=== PATIENT | male | born 1940 | race Caucasian/White ===

== ENCOUNTER → 2016-03-22 | Outpatient (CLI) | payer BC ==
[~2016-03-22] MED LIST: ASPI81CH2 PO; COEN1CAP28 PO; HYG/25 PO; POTA1CAP2 PO; PRAV40TA PO
--- NOTE | 2016-03-22 11:02 | DIAGNOSTIC IMAGING REPORT ---
ULTRASOUND VENOUS DOPPLER ULTRASOUND OF THE LEFT LOWER EXTREMITY CLINICAL HISTORY: Leg swelling. History of right upper extremity DVT. COMPARISON STUDY: No previous studies for comparison. FINDINGS: Real-time and color flow Doppler imaging were performed. Flow was seen within the femoral, popliteal and calf veins with no intraluminal thrombus demonstrated. The saphenous vein is patent. IMPRESSION: No evidence of left lower extremity DVT. Electronically signed by: Glenn Ambrocio M.D. 03/22/2016 11:00 AM Dictated Date/Time: 03/22/2016 10:59 AM
== END | disposition home or self-care (01) ==
LOC: C.ULTR 09:57
PROVIDERS: ATTEND Internal Medicine
DX: I82.409 Acute embolism and thrombosis of unspecified deep veins of unspecified lower extremity (principal); M79.605 Pain in left leg

== ENCOUNTER → 2016-03-25 | Outpatient (CLI) | payer BC ==
[2016-03-25 12:25] LABS: BASO % 0.5 %; BASO ABS # 0.02 K/uL (0-0.2); COMPLETE YES; EOS % 1.4 %; HEMATOCRIT 38.1 % (42-52); LYMPH % 22.2 %; LYMPH ABS # 0.98 K/uL (1.2-3.4); MEAN CELL VOLUME 80.5 fL (80-100); MEAN CORPUSCULAR HEMOGLOBIN 25.4 pg (25-34); MEAN CORPUSCULAR HGB CONC 31.5 g/dl (32-36); MEAN PLATELET VOLUME 9.5 fL (7.4-10.4); MONO % 12.9 %; PLATELET COUNT 252 K/uL (130-400); RED BLOOD COUNT 4.73 M/uL (4.7-6.1); WHITE BLOOD COUNT 4.41 K/uL (4.8-10.8)
[2016-03-25 12:37] LABS: ALT/SGPT 22 U/L (12-78); AST/SGOT 18 U/L (15-37); BLOOD UREA NITROGEN 21 mg/dl (7-18); BUN/CREATININE RATIO 17.6 (10-20); CARBON DIOXIDE 30 mmol/L (21-32); CHLORIDE 101 mmol/L (98-107); GLUCOSE 97 mg/dl (70-99); POTASSIUM 3.8 mmol/L (3.5-5.1); SODIUM 139 mmol/L (136-145)
[2016-03-25 12:40] LABS: ALB/GLOB RATIO 1.3 (0.9-2); ALKALINE PHOSPHATASE 52 U/L (45-117); FERRITIN 5.1 ng/ml (8.0-388.0); TOTAL IRON BINDING CAPACITY 410 mcg/dl (250-450)
--- NOTE | 2016-03-29 13:44 | CODING QUERY MEDICAL NECESSITY ---
SUPPORTING DIAGNOSIS NEEDED A supporting diagnosis is required for the test/procedure performed on this patient in order for us to be reimbursed by the patient's insurance. Please provide a supporting diagnosis for the following test/procedure listed below next to the test name along with your signature. *If there is no additional diagnosis for this patient that would support the following test/procedure please document that below next to the test/procedure. Test(s)/Procedure(s) that require a supporting diagnosis: * VIT B-12 LEVEL DIAGNOSIS: * FOLATE LEVEL DIAGNOSIS: * DOS: 03/25/16 Provider Signature: Date: Thank you Natalia Abernathy Health Information Management Once completed, please kindly fax back to [phone] For questions please call [phone]
== END | disposition home or self-care (01) ==
LOC: C.LABBFT 10:47
PROVIDERS: ATTEND Nurse Practitioner
DX: C67.8 Malignant neoplasm of overlapping sites of bladder (principal); D64.9 Anemia, unspecified

== ENCOUNTER → 2016-06-27 | Outpatient (CLI) | payer BC ==
[2016-06-27 17:53] LABS: BASO % 0.4 %; BASO ABS # 0.02 K/uL (0-0.2); COMPLETE YES; EOS % 1.3 %; IG% 0.2 %; LYMPH % 20.7 %; LYMPH ABS # 0.96 K/uL (1.2-3.4); MEAN CELL VOLUME 89.4 fL (80-100); MEAN CORPUSCULAR HEMOGLOBIN 30.4 pg (25-34); MONO % 9.3 %; NEUT % 68.1 %; PLATELET COUNT 188 K/uL (130-400); WHITE BLOOD COUNT 4.64 K/uL (4.8-10.8)
[2016-06-27 18:12] LABS: BLOOD UREA NITROGEN 22 mg/dl (7-18); BUN/CREATININE RATIO 16.6 (10-20); CALCIUM 9.4 mg/dl (8.5-10.1); CARBON DIOXIDE 33 mmol/L (21-32); CHLORIDE 102 mmol/L (98-107); GLUCOSE 128 mg/dl (70-99); POTASSIUM 3.5 mmol/L (3.5-5.1); SODIUM 140 mmol/L (136-145); TOTAL IRON BINDING CAPACITY 363 mcg/dl (250-450)
[2016-06-27 18:19] LABS: ALB/GLOB RATIO 1.3 (0.9-2); ALKALINE PHOSPHATASE 65 U/L (45-117); ALT/SGPT 25 U/L (12-78); AST/SGOT 17 U/L (15-37); FERRITIN 20.6 ng/ml (8.0-388.0)
== END | disposition home or self-care (01) ==
LOC: C.LABBFT 13:26
PROVIDERS: ATTEND Nurse Practitioner
DX: C67.8 Malignant neoplasm of overlapping sites of bladder (principal)

== ENCOUNTER → 2016-09-24 | Outpatient (CLI) | payer BC ==
[2016-09-24 12:10] LABS: BASO % 0.4 %; BASO ABS # 0.02 K/uL (0-0.2); COMPLETE YES; EOS % 1.1 %; HEMATOCRIT 41.6 % (42-52); IG% 0.4 %; LYMPH % 22.8 %; MEAN CELL VOLUME 91.6 fL (80-100); MEAN CORPUSCULAR HEMOGLOBIN 32.2 pg (25-34); MEAN CORPUSCULAR HGB CONC 35.1 g/dl (32-36); MEAN PLATELET VOLUME 9.2 fL (7.4-10.4); MONO % 13.5 %; NEUT % 61.8 %; PLATELET COUNT 215 K/uL (130-400); RED BLOOD COUNT 4.54 M/uL (4.7-6.1); WHITE BLOOD COUNT 5.26 K/uL (4.8-10.8)
[2016-09-24 12:23] LABS: ALT/SGPT 24 U/L (12-78); AST/SGOT 17 U/L (15-37); BLOOD UREA NITROGEN 17 mg/dl (7-18); BUN/CREATININE RATIO 15.5 (10-20); CALCIUM 9.1 mg/dl (8.5-10.1); CARBON DIOXIDE 31 mmol/L (21-32); CHLORIDE 97 mmol/L (98-107); GLUCOSE 82 mg/dl (70-99); POTASSIUM 3.5 mmol/L (3.5-5.1); SODIUM 135 mmol/L (136-145)
[2016-09-24 12:26] LABS: ALB/GLOB RATIO 1.2 (0.9-2); ALKALINE PHOSPHATASE 70 U/L (45-117); FERRITIN 12.8 ng/ml (8.0-388.0); TOTAL IRON BINDING CAPACITY 369 mcg/dl (250-450)
--- NOTE | 2016-10-08 08:33 | CODING QUERY MEDICAL NECESSITY ---
CQSUPPORTING DIAGNOSIS NEEDED A supporting diagnosis is required for the test/procedure performed on this patient in order for us to be reimbursed by the patient's insurance. Please provide a supporting diagnosis for the following test/procedure listed below next to the test name along with your signature. *If there is no additional diagnosis for this patient that would support the following test/procedure please document that below next to the test/procedure. Test(s)/Procedure(s) that require a supporting diagnosis: DOS 09/24/16 PROSTATE SPECIFIC (PSA TEST) Provider Signature: Date: Thank you Juliet Hogue Health Information Management Once completed, please kindly fax back to [phone] For questions please call [phone]
== END | disposition home or self-care (01) ==
LOC: C.LABBFT 10:51
PROVIDERS: ATTEND Nurse Practitioner Family
DX: C67.8 Malignant neoplasm of overlapping sites of bladder (principal); C61 Malignant neoplasm of prostate

== ENCOUNTER → 2017-07-11 | Outpatient (CLI) | payer BC ==
[2017-07-11 16:40] LABS: BASO % 0.4 %; BASO ABS # 0.02 K/uL (0-0.2); EOS % 2.8 %; EOS ABS # 0.13 K/uL (0-0.5); HEMATOCRIT 44.3 % (42-52); HEMOGLOBIN 15.1 g/dL (14.0-18.0); IG# 0.01 K/uL (0.00-0.02); LYMPH % 20.2 %; LYMPH ABS # 0.94 K/uL (1.2-3.4); MEAN CELL VOLUME 92.9 fL (80-100); MEAN CORPUSCULAR HEMOGLOBIN 31.7 pg (25-34); MEAN CORPUSCULAR HGB CONC 34.1 g/dl (32-36); MEAN PLATELET VOLUME 10.3 fL (7.4-10.4); MONO % 13.9 %; MONO ABS # 0.65 K/uL (0.11-0.59); NEUT % 62.5 %; NEUT ABS # 2.91 K/uL (1.4-6.5); PLATELET COUNT 231 K/uL (130-400); RED CELL DISTRIBUTION WIDTH CV 13.4 % (11.5-14.5); RED CELL DISTRIBUTION WIDTH SD 45.5 fL (36.4-46.3); WHITE BLOOD COUNT 4.66 K/uL (4.8-10.8)
[2017-07-11 16:50] LABS: ALBUMIN 4.2 gm/dl (3.4-5.0); ALT/SGPT 24 U/L (12-78); AST/SGOT 21 U/L (15-37); BLOOD UREA NITROGEN 14 mg/dl (7-18); CALCIUM 9.1 mg/dl (8.5-10.1); CARBON DIOXIDE 31 mmol/L (21-32); CREATININE 1.16 mg/dl (0.60-1.40); GLUCOSE 86 mg/dl (70-99); POTASSIUM 3.6 mmol/L (3.5-5.1); SODIUM 135 mmol/L (136-145)
[2017-07-11 16:53] LABS: ALKALINE PHOSPHATASE 72 U/L (45-117); TOTAL PROTEIN 7.3 gm/dl (6.4-8.2)
== END | disposition home or self-care (01) ==
LOC: C.LABBFT 11:28
PROVIDERS: ATTEND Nurse Practitioner Family
DX: C67.8 Malignant neoplasm of overlapping sites of bladder (principal)

== ENCOUNTER 2023-09-06 10:26 | Observation (INO) ==
--- OUTSIDE RECORDS SUMMARY | 2023-09-06 10:40 | External Medical Summary | Continuity of Care Document ---
Author Name Unknown Organization [facility] [address] [facility] [address] [id number] Care Team Providers Care Theatre Program Director Name Role Phone Marta Mcnair Primary Care Physician [phone] [facility]counter [facility] [id number] Date(s): 07/15/23 - 07/15/23 [facility] [address] [facility] [address] [phone] Encounter Diagnosis Basal cell carcinoma of left cheek(Discharge Diagnosis) - 07/15/23 Discharge Disposition: Home or Self Care Attending Physician: MD Parada Cassandra Referring Physician: TAMI Echeverria, Cristela Hansen Allergies, Adverse Reactions, Alerts No Known Allergies Medications amLODIPine 2.5 mg oral tablet take 1 tablet by mouth once daily Start Date: 12/16/19 Status: Ordered chlorthalidone 25 mg oral tablet Start: 04/06/15 14:43:00, 1 tab, PO, Daily Start Date: 04/06/15 Status: Ordered CoQ10 Start: 04/06/15 14:44:00, 200 mg =, PO, Daily Start Date: 04/06/15 Status: Ordered ibuprofen 600 mg oral tablet Start: 05/22/15 15:59:00, 1 tab, PO, q8h, PRN: as needed for pain Start Date: 05/22/15 Status: Ordered potassium chloride Start: 04/06/15 14:43:00 EST, 20 mEq =, PO, tid Start Date: 04/06/15 Status: Ordered pravastatin 40 mg oral tablet Start: 04/06/15 14:44:00, 1 tab, PO, qhs Start Date: 04/06/15 Status: Ordered Tylenol 500 mg oral tablet Start: 08/03/19 10:37:00 EDT, 2 tab, PO, q8h, PRN: as needed for pain Start Date: 08/03/19 Status: Ordered Mental Status 07/15/23 Barriers to Learning one year Hearing de ficit, Vision impairment, Other: glassses, hearing aid Mandatory Health Literacy Documentation Yes Health Literacy Communication Barriers N ever Primary Language Turkish Problem List Condition Confirmation Course Effective Dates Status Health St atus Informant Basal cell carcinoma of left cheek Confirmed Active Changing skin lesion Confirmed Active History of basal cell carcinoma of skin Confirmed Active High cholesterol Confirmed Active HTN (hypertension) Confirmed Active Bladder cancer Confirmed Active Preop examination Confirmed Active Diagnosis Diagnosis Type Effective Dates Health Status Cl inical Service Informant Basal cell carcinoma of left cheek Discharge Diagnosis 07/15/23 Procedures Procedure Date Related Diagnosis Body Site Status Electrodesiccation with curettage 07/15/23 Completed Mohs micrographic surgery 07/15/23 Completed Shave biopsy and cauterization of skin 04/09/23 Completed Shave biopsy and cauterization of skin 04/09/23 Completed Bowel obstruction 07/2019 [facility] Repair of ventral hernia 2017 Completed Bladder 05/17/15 Completed Radical cystectomy 1 05/17/15 Comp leted Cystoscopy x2 2014 Completed Prostatectomy 2011 Completed Colonoscopy x3 2009 Completed Tonsillectomy 194 Completed Bowel obstruction 1943 Complet ed 1open radical cystectomy, ileal conduit, repair of abd wall hernia, primary repair of rectal injury Social History Social History Type Response Smoking Status Never smoked cigaret sarkis Sex Male Dermatology Outpt Proc * NAYE Huerta Rhonda: PERFORM Event Display: Dermatology Outpt Proc Authored Date: [id number] DERMATOLOGY OUTPATIENT PROCEDURE NOTE Name: VICKY DANIELLE Patient Number: [id number] : 1940 Date of Service: 07/15/2023 _ Electronic Signature on File Electronically Reviewed/Signed by: Ingrid Huerta Author Signature Dt/Tm:07/15/2023 04:25 PM Electronically Reviewed/Signed by: MD Solange Garcia Signature Dt/Tm: 07/15/2023 04:38 PM Department of Dermatology RS Patient Care team information Care Team Personnel Name: MD Mcnair Cynthia D Position: Referring Member Role: Primary Care Provider Address: Address: [address] [place] [id number] Name: ELGIN Echeverria Tara Position: Nurse Pract - Family Med Member Role: Lifetime Relationship Address: Address: [address] [place] [address], [place] [address] [place] Name: Lukas Álvarez Kyle Position: Pharmacist Member Role: Pharmacy - Lifetime Address: Address: [address] [place] [address] [place] [id number] Care Team Related Persons Name: JOSE F DE LEON Address: home [address] [place] [phone] Name: ZO DANIELLE Address: home [address] [place] [phone]
--- NOTE | 2023-09-06 11:34 | Emergency Department Note ---
History of Present Illness General Chief complaint: Head Pain Time Seen by Provider: 09/06/23 11:32 History of Present Illness NAME: VICKY DANIELLE AGE: 83 SEX: M : 1940 ARRIVES VIA: Walk-In INFORMANT: Patient ED PROVIDER(S): ELGIN Escobedo, Marino Browne MD The patient is an 83-year-old male who presents to the emergency department for evaluation of an episode of acute onset vision loss. He reports last Friday he was at a car show in [place] when he noticed a curtain of vision loss starting from the bottom of his left eye. It covered 3/4 of his vision and was constant for approximately 3 minutes. He reports the vision returned and he had no other symptoms. He denies any neurological deficits, and reports a slight frontal and maxillary headache. He denies recent illness, he is showing no sign of neurological deficits. Denies any history of previous stroke or TIA. Home Medications Medication Instructions Recorded Confirmed Type chlorthalidone 25 mg tablet 25 mg PO QAM 11/18/18 09/06/23 History coenzyme Q10 10 mg capsule (Co 10 mg PO QAM 11/18/18 09/06/23 History Q-10) glucosam 500 mg-chondroit 66.7 1 tab PO QAM 11/18/18 09/06/23 History mg-msm 500 mg-boron 2 mg-hyaluro tablet (Glucosamine-Chondr Complx (MSM-hyal)) pravastatin 40 mg tablet 40 mg PO QPM 11/18/18 09/06/23 History potassium chloride 20 mEq 20 meq PO TID 10/15/22 09/06/23 History tablet,extended release amlodipine 5 mg tablet (Norvasc) 5 mg PO QAM 01/20/23 09/06/23 History hydrocodone-homatropine 5 mg-1.5 5 ml PO Q6H PRN cough #240 mL 02/21/23 09/06/23 Rx mg/5 mL oral syrup (Hydromet) ostomy supplies (Adapt Stoma #28.3 grams 04/17/23 Rx Powder topical) timolol maleate 0.5 % eye drops 1 drp ophthalmic (eye) DAILY 09/06/23 09/06/23 History aspirin 81 mg tablet,delayed 81 mg PO QAM #30 tabs 09/07/23 Rx release Allergies Allergy/AdvReac Type Severity Reaction Status Date / Time atorvastatin AdvReac Unknown Unknown Verified 01/29/23 07:19 lovastatin [From Mevacor] AdvReac Unknown Unknown Verified 01/29/23 07:19 sildenafil [From Viagra] AdvReac Unknown "I didnt Verified 01/29/23 07:19 like it so I stopped it" Past Med/Surg History Problem List (Updated 09/07/23 @ 10:51 by ELGIN Ryan) Hypokalemia Stroke-like symptoms (Acute) Amaurosis fugax of left eye (Acute) Tricuspid regurgitation mild per 2018 echo; no updated ECHO planned per PCP. Per PCP note 10/15/22, no murmur appreciated Encounter for pre-operative examination Parastomal hernia (Chronic) Raynauds disease (Chronic) treated with amlodipine History of bladder cancer s/p total cystectomy with ileal conduit 2015 Aortic insufficiency (Chronic) mild on echo 2018; no updated ECHO planned per PCP. Per PCP note 10/15/22, no murmur appreciated History of basal cell carcinoma (Chronic) History of malignant neoplasm of prostate (Chronic) s/p prostatectomy 2010 Hypercholesterolemia (Chronic) Hypertension (Chronic) Inhibited sexual excitement (Chronic) Memory impairment (Chronic) Presence of urostomy (Chronic) Medical History Hearing deficit DVT (deep venous thrombosis) per chart review, R arm DVT 2015; per pcp 'he has not required ongoing therapy' Surgical History History of major abdominal surgery as an infant to his abdomen "I'm not sure what they did, I just have a scar on my abdomen" History of Mohs micrographic surgery for skin cancer History of prostate biopsy malignant History of colonoscopy History of abdominal surgery ex lap, [place] [facility] [place] of tooth extraction S/P ventral herniorrhaphy S/P T&A (status post tonsillectomy and adenoidectomy) Status post prostatectomy Status post robotic assisted prostatectomy [place] [place]/P cataract extraction left H/O total cystectomy 3/2/16-b/l pelvic lymph node dissection, ileal conduit urinary creation Family History Father Myocardial infarction Mother Tobacco abuse COPD (chronic obstructive pulmonary disease) Other No family history of adverse response to anesthesia Denies family history of Ovarian cancer Prostate cancer Breast cancer Colorectal cancer Social History Smoking Status: Never smoker Second Hand Exposure: No; Do You Dip or Chew Tobacco: No; Tobacco Cessation Education Requested by Patient: No Hx Alcohol Use: Yes Alcohol type: wine Alcohol Intake Frequency: 2-4 x/Month Hx Substance Use: No Preferred Language: Belgian Communication Ability: Effective Visual Impairment: No Limitations Hearing Ability: Use of Hearing Aid Hone Operator Required: No Beliefs That Will Affect Care: None marital status: Current Living Situation: Alone Current Living Situation Comment: lives at home alone current occupational status: retired Other Information That Helps Us Care for You: No Feels Safe at Home: Yes Safety Concerns: Feels Safe At This Time Childhood Exposure to Second-Hand Smoke: Yes Diet: regular caffeine: Yes Dental Care, Regularly: Yes Physical Activity Frequency: 3-4 Times per Week Seatbelt Use: always Sunscreen Use: No Assistive Devices: None Physical Exam Vital Signs Vital Signs - 24 hr 09/06/23 12:27 09/06/23 12:47 09/06/23 13:00 Pulse Rate 75 72 Pulse Rate [Finger] 65 Pulse Rate from SpO2 Sensor 50 L Pulse Rhythm [Finger] Regular Pulse Strength [Finger] Normal Respiratory Rate 17 13 Respiratory Effort / Characteristics Non-Labored Spontaneous Respiratory Depth Normal Respiratory Pattern Regular Blood Pressure 131/97 Blood Pressure [Left Arm] 131/97 Blood Pressure Mean 108 Blood Pressure Mean [Left Arm] 108 Blood Pressure Position [Left Arm] Semi-fowlers Pulse Oximetry 95 95 Oxygen Delivery Method Room Air 09/06/23 14:11 Pulse Rate Pulse Rate [Finger] 75 Pulse Rate from SpO2 Sensor Pulse Rhythm [Finger] Regular Pulse Strength [Finger] Normal Respiratory Rate 17 Respiratory Effort / Characteristics Non-Labored Spontaneous Respiratory Depth Normal Respiratory Pattern Regular Blood Pressure Blood Pressure [Left Arm] 178/89 H Blood Pressure Mean Blood Pressure Mean [Left Arm] 118 Blood Pressure Position [Left Arm] Semi-fowlers Pulse Oximetry 97 Oxygen Delivery Method Room Air VITALS: Vitals are noted on the nurse's note and reviewed by myself. Vital signs stable. GENERAL: 83-year-old male, in no acute distress, nondiaphoretic, well-developed well-nourished. SKIN: The skin was without rashes, erythema, edema, or bruising. HEAD: Normocephalic atraumatic. EYES: Pupils equal round and reactive to light and accommodation. Conjunctivae without injection, sclerae without icterus. Extraocular movements intact. MOUTH: Mucous membranes moist. Tonsils are not enlarged. Pharynx without erythema or exudate. Uvula midline. Airway patent. Tongue does not deviate. NECK: Supple without nuchal rigidity. No lymphadenopathy. No thyromegaly. HEART: Regular rate and rhythm without murmurs gallops or rubs. LUNGS: Clear to auscultation bilaterally without wheezes, rales or rhonchi. No retractions or accessory muscle use. ABDOMEN: Positive bowel sounds x 4. Soft, nontender, without masses or organomegaly. Marshall sign negative. No guarding or rebound tenderness. MUSCULOSKELETAL: No muscle atrophy, erythema, or edema noted. Full range of motion without joint tenderness in all extremities. No tenderness to palpation. Normal gait. Strength 5/5 throughout. NEURO: Patient was alert and oriented to person place and time. No focal neurological deficits. NIHSS 0. Course Administered Medications Amlodipine Besylate (Amlodipine Besylate 5 Mg Tab) 5 mg PO [facility] Stop: 10/07/23 08:59 Last Admin: 09/07/23 08:23 Dose: 5 mg Documented By: MAGGIE Aspirin (Aspirin 81 Mg Ectab) 81 mg PO [facility] Stop: 10/07/23 08:59 Last Admin: 09/07/23 08:24 Dose: 81 mg Documented By: MAGGIE Chlorthalidone (Chlorthalidone 25 Mg Tab) [facility] Stop: 10/07/23 08:59 Last Admin: 09/07/23 08:22 Dose: 25 mg Documented By: MAGGIE Hydrocodone Bit/Homatropine Methylb (Hydrocodone/Homatropine Syrup 5mg/1.5mg 5ml Udp) 5 ml PO Q6H PRN PRN Reason: cough Stop: 09/20/23 19:34 Last Admin: 09/07/23 06:11 Dose: 5 ml Documented By: Admin: 09/06/23 21:15 Dose: 5 ml Documented By: LISA Potassium Chloride (Potassium Chloride Crtab 20 Meq Tabcr) 20 meq PO TID TORREY Stop: 10/06/23 20:59 Last Admin: 09/07/23 08:21 Dose: 20 meq Documented By: Admin: 09/06/23 21:15 Dose: 20 meq Documented By: LISA Rosuvastatin Calcium (Rosuvastatin Calcium 20 Mg Tab) 20 mg PO QAM TORREY Stop: 10/07/23 08:59 Last Admin: 09/07/23 08:24 Dose: 20 mg Documented By: MAGGIE Discontinued Medications Aspirin (Aspirin 81 Mg Ectab) 81 mg PO NOW STA Stop: 09/06/23 16:00 Last Admin: 09/06/23 17:30 Dose: 81 mg Documented By: NADINE Ioversol (Optiray 320 125ml) 112 ml IV ONCE ONE Stop: 09/06/23 13:21 Last Admin: 09/06/23 13:20 Dose: 112 ml Documented By: LAYLA Potassium Chloride (Potassium Chloride Crtab 20 Meq Tabcr) 20 meq PO NOW STA Stop: 09/06/23 18:31 Last Admin: 09/06/23 19:51 Dose: 20 meq Documented By: LISA Proparacaine HCl (Proparacaine 0.5% 225 Drops/15 Ml Btl) 2 drops OP ONCE ONE Stop: 09/06/23 11:34 Last Admin: 09/06/23 12:26 Dose: 2 drops Documented By: LAURYN Medical Decision Making Differential Diagnosis trauma, glaucoma, iritis,CRAO, CRVO, vitreous detachment, retinal detachment, TIA, stroke, as well as other pathologies. Medical Records Attestation: I reviewed the patient's medical records. Home Medications Current Medication List: was personally reviewed by me Laboratory Data Attestation: I reviewed the patient's lab results. No leukocytosis, stable hemoglobin and hematocrit, no significant electrolyte abnormalities, negative troponin. 09/07/23 05:41 09/07/23 05:41 Lab Results 09/06/23 Range/Units 12:20 WBC 5.97 (4.8-10.8) K/ul RBC 4.96 (4.70-6.10) M/uL Hgb 15.7 (14.0-18.0) g/dl Hct 44.3 (42.0-52.0) % MCV 89.3 (80.0-100.0) fL MCH 31.7 (25.0-34.0) pg MCHC 35.4 (32.0-36.0) g/dL RDW Std Deviation 42.1 (36.4-46.3) fL RDW Coeff of [place]orge 12.9 (11.5-14.5) % Plt Count 226 (130-400) K/uL MPV 9.5 (9.4-12.4) fL Immature Gran % (Auto) 0.5 % Neut % (Auto) 73.4 % Lymph % (Auto) 11.7 % [place] % (Auto) 12.9 % Eos % (Auto) 1.0 % Baso % (Auto) 0.5 % Neut # (Auto) 4.38 (1.40-6.50) K/uL Lymph # (Auto) 0.70 L (1.20-3.40) K/uL [place] # (Auto) 0.77 H (0.11-0.59) K/uL Eos # (Auto) 0.06 (0.00-0.50) K/uL Baso # (Auto) 0.03 (0.00-0.20) K/uL Immature Gran # (Auto) 0.03 (0.01-0.20) K/uL ESR 29 H (0-20) mm/hr PT 10.2 (9.0-12.0) Seconds INR 0.9 (0.9-1.1) APTT 27 (21-31) Seconds PTT Ratio 1.0 Sodium 133 L (136-145) mmol/L Potassium 3.3 L (3.5-5.1) mmol/L Chloride 96 L (98-107) mmol/L Carbon Dioxide 30 (21-32) mmol/L Anion Gap 7 (3-11) BUN 15 (6-23) mg/dl Creatinine 0.99 (0.6-1.4) mg/dl Est Cr Clr Drug Dosing 50.9 ml/min Est GFR ( Amer) 82.4 ml/min Est GFR (Non-Af Amer) 71.1 ml/min BUN/Creatinine Ratio 15.2 (10-20) Glucose 93 (70-99(Fasting)) mg/dl Calcium 9.8 (8.6-10.3) mg/dl Magnesium 1.9 (1.7-2.4) mg/dl Total Bilirubin 0.7 (0.2-1.0) mg/dl AST 23 (13-39) U/L ALT 20 (7-52) U/L Alkaline Phosphatase 65 (34-104) U/L Troponin I High Sens 4.9 (0-20) pg/ml C-Reactive Protein < 0.50 (0-0.5) mg/dl Total Protein 7.2 (6.0-8.3) gm/dl Albumin 4.6 (3.4-5.0) gm/dl Globulin 2.6 (2.5-4.0) gm/dl Albumin/Globulin Ratio 1.8 (0.9-2) ECG Data Attestation: I personally reviewed and interpreted this ECG as follows: Indication: + other (CVA workup) Rate (beats per minute): 77 Rhythm: + sinus rhythm ECG ST segments: + Nonspecific ST abnormalities ECG Findings: + PACs and + Bigeminy Comparison ECG Date: from (01/15/23) Change: the following changes noted Additional Comments: Nonspecific T wave abnormality present, PAC's with bigeminy Blood Pressure Blood Pressure Findings: Elevated blood pressure Blood Pressure Disposition: elevated BP felt to be situational MDM Narrative The patient is a pleasent 83-year-old male who presents to the emergency department for the above stated complaint. Upon examination the patient is describing Amaurosis fagux of the left eye which is consistent with TIA. A stroke workup was initiated at that time including a saline lock, CBC, CMP, EKG, troponin, chest xray, CT head, CTA head and neck. An attempt was made to perform a retina scan, however, there was difficulty with the device and the scan was unable to be performed. CBC shows no leukocytosis, stable hemoglobin and hematocrit. CMP was unremarkable. EKG shows PAC's, bigeminy with nonspecific T wave abnormality not present on previous of 01/15/23, troponin was negative. CT head, CTA head and neck were negative for acute concern. The patient was admitted for EKG changes, as well as TIA, for MRI and opthalmology evaluation. I spoke with Dr. Silveira who recommended adding inflammatory markers to rule out giant cell arteritis. CRP and ESR were added at that time. I spoke with case management who facilitaed contact with the [facility] hospitalist group. Dr. Hale, agreed to accept the patient for further evaluation. Please refer to Dr. Hale's documentation for further patient workup. Continuous graphics specialist: Order was placed for continuous graphics specialist. Patient was placed on the graphics specialist. Patient was noted to be in NSR at an initial rate of 75 bpm. The patient's case was discussed with Dr. Browne, who agreed with my evaluation and treatment plan. Impression & Plan Amaurosis fugax of left eye, Stroke-like symptoms Discharge Plan Visit Data Chief Complaint: Head Pain ED Provider: Marino Browne ED Midlevel Provider: Vianca Augustine Discharge Problem: Amaurosis fugax of left eye, Stroke-like symptoms Patient Disposition: Admitted As Inpatient Discharge Instructions Interventions: ED Discharge Assessment Last Done: 09/06/23 18:33
[2023-09-06] MEDS: PROPARACAINE 0.5% 225 DROPS/15 ML BTL OP ONE (12:26)
[2023-09-06 12:54] LABS: Basophils # (auto) 0.03 K/uL (0.00-0.20); Basophils % (auto) 0.5 %; Eosinophils # (auto) 0.06 K/uL (0.00-0.50); Hematocrit (blood only) 44.3 % (42.0-52.0); Hemoglobin 15.7 g/dl (14.0-18.0); Immature Granulocytes # (auto) 0.03 K/uL (0.01-0.20); Immature Granulocytes % (auto) 0.5 %; Lymphocytes % (auto) 11.7 %; Mean Corpuscular Hemoglobin 31.7 pg (25.0-34.0); Mean Corpuscular Hgb Conc 35.4 g/dL (32.0-36.0); Mean Corpuscular Volume 89.3 fL (80.0-100.0); Mean Platelet Volume 9.5 fL (9.4-12.4); Monocytes # (auto) 0.77 K/uL (0.11-0.59); Monocytes % (auto) 12.9 %; Neutrophils # (auto) 4.38 K/uL (1.40-6.50); Neutrophils % (auto) 73.4 %; Platelet Count 226 K/uL (130-400); RDW Coefficient of Variation 12.9 % (11.5-14.5); RDW Standard Deviation 42.1 fL (36.4-46.3); Red Blood Count 4.96 M/uL (4.70-6.10); White Blood Count 5.97 K/ul (4.8-10.8)
[2023-09-06 12:57] LABS: Alanine Aminotransferase 20 U/L (7-52); Albumin Globulin Ratio 1.8 (0.9-2); Albumin Level 4.6 gm/dl (3.4-5.0); Alkaline Phosphatase 65 U/L (34-104); Anion Gap 7 (3-11); Aspartate Aminotransferase 23 U/L (13-39); BUN Creatinine Ratio 15.2 (10-20); Bilirubin,Total 0.7 mg/dl (0.2-1.0); Blood Urea Nitrogen 15 mg/dl (6-23); Calcium 9.8 mg/dl (8.6-10.3); Carbon Dioxide 30 mmol/L (21-32); Chloride 96 mmol/L (98-107); Creatinine Clr Calc Pharmacy 50.9 ml/min; Est GFR (African American) 82.4 ml/min; Est GFR (Non-African American) 71.1 ml/min; Globulin 2.6 gm/dl (2.5-4.0); Glucose 93 mg/dl (70-99(Fasting)); Magnesium 1.9 mg/dl (1.7-2.4); Potassium 3.3 mmol/L (3.5-5.1); Sodium 133 mmol/L (136-145); Total Protein 7.2 gm/dl (6.0-8.3)
[2023-09-06 13:03] LABS: Troponin I High Sensitivity 4.9 pg/ml (0-20)
[2023-09-06 13:18] LABS: INR 0.9 (0.9-1.1); Partial Thromboplastin Time 27 Seconds (21-31); Prothrombin Time 10.2 Seconds (9.0-12.0)
[2023-09-06] MEDS: OPTIRAY 320 125ml IV ONE (13:20)
--- NOTE | 2023-09-06 13:44 | CT Scan Report ---
UNENHANCED CT OF THE BRAIN; CT ANGIOGRAM OF THE BRAIN; CT ANGIOGRAM OF THE NECK CLINICAL HISTORY: Neurological deficit. Stroke like symptoms. COMPARISON STUDY: No priors. TECHNIQUE: Unenhanced axial CT scan of the brain is performed. Subsequently, following the IV adminis tration of 112 of Optiray 320, CT angiogram of the head and neck was performed from the aortic arch t o the vertex. Images are reviewed in the axial, sagittal, and coronal planes. 3-D MIPS images are cre ated and assessed. IV contrast was administered without complication. All measurements were calculate d based on NASCET criteria. A dose lowering technique was utilized adhering to the principles of ALA RA. CT DOSE: 1130.62 mGy.cm FINDINGS: Brain parenchyma: There is age related involutional change noting mild microangiopathic disease. Ther e is no hemorrhage, mass effect, or evidence of acute territorial ischemia by CT criteria. There is n o evidence of enhancing mass lesion on the angiogram phase images. The ventricles, sulci, and cistern s are prominent secondary to change. Fleming-white matter differentiation is preserved. No extra-axial f luid collection is seen. Thoracic aorta: There is atherosclerotic calcification of the thoracic aorta. Visualized portions of the thoracic aorta are normal in caliber. The aortic arch demonstrates standard 3-vessel anatomy. Right carotid arterial system: The right common carotid artery is widely patent, as are the right int ernal and external carotid arteries. Left carotid arterial system: The left common carotid artery is widely patent, as are the left internal investigator al and external carotid arteries. Minimal plaque is seen in the carotid bulb. Vertebral arteries: The vertebral arteries are widely patent bilaterally and codominant. Subclavian arteries: Widely patent bilaterally. Intracranial vasculature: The internal carotid arteries are patent at the skull base, as are the ante rior and middle cerebral arteries bilaterally. The vertebrobasilar system and posterior cerebral amy sourav are widely patent. The vertebral arteries are codominant. There is no aneurysm, high-grade steno sis, or focal vessel cut off seen throughout the intracranial circulation. Jugular veins: Patent bilaterally. Dural sinuses: Patent. Lung apices: Partially visualized upper lobe lung parenchyma appears clear. Soft tissues: The visualized pharyngeal soft tissues are normal in appearance noting angiographic pha se technique. The oropharyngeal airway appears widely patent. The salivary and thyroid glands are nor mal in appearance. No cervical lymphadenopathy is seen. Skeletal structures: The skeletal structures are osteopenic. The calvarium appears intact. The cervic al spine is maintained noting multilevel spondylosis. No lytic or blastic lesion is seen. Orbits: The bony orbits are intact. Orbital contents are normal as visualized noting a left ocular le ns implant. Sinuses and mastoids: Retention cyst in the right maxillary antrum measuring up to 2.4 cm. Trace muco francis thickening is noted in the frontal and ethmoid sinuses. There are trace mastoid effusions. IMPRESSION: 1. There is no hemorrhage, mass effect, or evidence of acute territorial ischemia by CT criteria. 2. Unremarkable CT angiogram of the brain. 3. Unremarkable CT angiogram of the neck. ACT 112: Negative or not required by law. Electronically signed by: Real Zazueta M.D. 09/06/2023 1:42 PM
--- NOTE | 2023-09-06 15:14 | History & Physical Report ---
Date of Service September 06, 2023 Assessment & Plan (1) Amaurosis fugax of left eye: Plan: Transient monocular vision loss that occurred on Tuesday 08/29; one week prior to coming to the ED Patient reports a "curtain" bj up over his eye and he lost vision for approximately 3 minutes Did not seek medical treatment at that time Sent in for stroke/TIA rule out Head CT, head CTA, and neck CTA without acute findings Brain MRI without contrast ordered, pending Echocardiogram with bubble study ordered, pending Hypercoagulable panel ordered; hypercoagulable panel indicated for suspected ischemic cause of vision with family hx (daughter) having similar episode of vision loss/TIA ESR mildly elevated at 29 CRP WNL Patient was previously on aspirin 81 mg daily for primary prevention, but was taken off it 2 years ago (he is unsure why) Restart aspirin 81 mg daily A.m. CBC, BMP, mag, fasting lipid panel, A1c (2) Stroke-like symptoms: Plan: Imaging/labs/treatment (as outlined above) (3) Hypercholesterolemia: Plan: Patient is currently on pravastatin 40 mg daily Listed allergies for atorvastatin/rosuvastatin, but unclear reaction Follow a.m. fasting lipid panel (4) Hypokalemia: Plan: Mild; K 3.3 on arrival Potassium chloride 20mEq p.o. given Recheck a.m. BMP (5) Presence of urostomy: Plan: Daily ostomy care Plan Disposition: Obs -admit to PCU telemetry Full code Heart healthy diet VTE PPx: SCDs, ASA History of Present Illness Chief Complaint: Head pain, monocular transient vision loss Primary Care Provider: Marta Mcnair MD Arian is an 83-year-old male with PMH of tricuspid regurg, aortic insufficiency, hyperglycemia, HTN, Raynaud's, bladder cancer s/p urostomy bag. He presented for an episode of vision loss that occurred 1 week ago on Tuesday 08/29. Patient [place], and reports that his left eye felt like a "curtain" came "up" over it. He then subsequently lost vision in the left eye for approximately 3 minutes. No prior experiences like this one. He was sent in for TIA/stroke workup. Something similar happened to his daughter a while back, where she lost vision for 3 minutes in the left eye, and then reportedly had a TIA. The patient has never had a stroke or TIA to his knowledge. He denies slurred speech, facial droop, or unilateral deficits. Patient wears glasses at baseline; no contacts; he did have a cataract removed from his left eye 6 years ago. He still has a minor cataract in his right eye. No family history of blood clots or bleeding disorders. No PMH of DVT/PE. Patient took all of his regular morning medications; no recent change in medications. He was formally on aspirin 81 mg daily for primary prevention, but was taken off it around 2 years ago. He denies any rashes or tick bites. He denies smoking, tobacco use, or recent alcohol use. Patient is hypertensive at 178/89 at time of admission; vitals otherwise stable. ED course: Alcaine 0.5% 2 drops ROS: Patient endorses one episode of transient monocular (left) vision loss, dizziness when lying down the other night, frontotemporal pressure, dry cough, occassional loose stool, and ongoing neuropathy in the legs/feet. Patient denies fever, chills, night-sweats, pain in ears, changes in hearing/taste/smell, slurred speech, facial droop, headache, new weakness/pressure in the shoulders/hips (patient does endorse chronic), unilateral deficits, chest pain, chest palpitations, SOB, pleuritic CP, hemopytsis, abdominal pain, N/V/D, and change in urinary/bowel habits. Allergies Allergy/AdvReac Type Severity Reaction Status Date / Time atorvastatin AdvReac Unknown Unknown Verified 01/29/23 07:19 lovastatin [From Mevacor] AdvReac Unknown Unknown Verified 01/29/23 07:19 sildenafil [From Viagra] AdvReac Unknown "I didnt Verified 01/29/23 07:19 like it so I stopped it" Home Medications Medication Instructions Recorded Confirmed Type chlorthalidone 25 mg tablet 25 mg PO QAM 11/18/18 09/06/23 History coenzyme Q10 10 mg capsule (Co 10 mg PO QAM 11/18/18 09/06/23 History Q-10) glucosam 500 mg-chondroit 66.7 1 tab PO QAM 11/18/18 09/06/23 History mg-msm 500 mg-boron 2 mg-hyaluro tablet (Glucosamine-Chondr Complx (MSM-hyal)) pravastatin 40 mg tablet 40 mg PO QPM 11/18/18 09/06/23 History potassium chloride 20 mEq 20 meq PO TID 10/15/22 09/06/23 History tablet,extended release amlodipine 5 mg tablet (Norvasc) 5 mg PO QAM 01/20/23 09/06/23 History hydrocodone-homatropine 5 mg-1.5 5 ml PO Q6H PRN cough #240 mL 02/21/23 09/06/23 Rx mg/5 mL oral syrup (Hydromet) ostomy supplies (Adapt Stoma #28.3 grams 04/17/23 Rx Powder topical) timolol maleate 0.5 % eye drops 1 drp ophthalmic (eye) DAILY 09/06/23 09/06/23 History Past Med/Surg History Problem List (Updated 09/06/23 @ 18:36 by Sharif Ordonez PA-C) Hypokalemia Stroke-like symptoms Amaurosis fugax of left eye Tricuspid regurgitation mild per 2018 echo; no updated ECHO planned per PCP. Per PCP note 10/15/22, no murmur appreciated Encounter for pre-operative examination Parastomal hernia (Chronic) Raynauds disease (Chronic) treated with amlodipine History of bladder cancer s/p total cystectomy with ileal conduit 2015 Aortic insufficiency (Chronic) mild on echo 2018; no updated ECHO planned per PCP. Per PCP note 10/15/22, no murmur appreciated History of basal cell carcinoma (Chronic) History of malignant neoplasm of prostate (Chronic) s/p prostatectomy 2010 Hypercholesterolemia (Chronic) Hypertension (Chronic) Inhibited sexual excitement (Chronic) Memory impairment (Chronic) Presence of urostomy (Chronic) Medical History (Updated 09/06/23 @ 18:36 by Sharif Ordonez PA-C) Hearing deficit DVT (deep venous thrombosis) per chart review, R arm DVT 2015; per pcp 'he has not required ongoing therapy' Surgical History History of major abdominal surgery as an to his abdomen "I'm not sure what they did, I just have a scar on my abdomen" History of Mohs micrographic surgery for skin cancer History of prostate biopsy malignant History of colonoscopy History of abdominal surgery ex lap, [place] parast[place] [facility] [place] History of tooth extraction S/P ventral herniorrhaphy S/P T&A (status post tonsillectomy and adenoidectomy) Status post prostatectomy Status post robotic assisted prostatectomy 07/25/2010[place] [place] S/P cataract extraction left H/O total cystectomy 05/17/15-b/l pelvic lymph node dissection, ileal conduit urinary creation Family History Father Myocardial infarction Mother Tobacco abuse COPD (chronic obstructive pulmonary disease) Other No family history of adverse response to anesthesia Denies family history of Ovarian cancer Prostate cancer Breast cancer Colorectal cancer Social History Smoking Status: Never smoker Second Hand Exposure: No; Do You Dip or Chew Tobacco: No; Hx Alcohol Use: Yes Alcohol type: wine and hard liquor Alcohol Intake Frequency: 2-4 x/Month Hx Substance Use: No Preferred Language: Northern Irish Communication Ability: Effective Visual Impairment: No Limitations Hearing Ability: Use of Hearing Aid Siphon Operator Required: No Beliefs That Will Affect Care: None marital status: Current Living Situation: Spouse current occupational status: retired Feels Safe at Home: Yes Childhood Exposure to Second-Hand Smoke: Yes Diet: regular caffeine: Yes Dental Care, Regularly: Yes Physical Activity Frequency: 3-4 Times per Week Seatbelt Use: always Sunscreen Use: No Assistive Devices: Glasses and Hearing Aid - Bilateral Review of Systems Review of Systems: See HPI above Physical Exam Physical Exam: General: no acute distress; pleasant affect; non-toxic appearing; well- nourished; cooperative; SpO2 97% on RA HEENT: normocephalic, atraumatic; no scleral icterus; PERRLA w/ EOMs intact; right-sided nystagmus in both eyes; dry mucus membrane; vision intact; hard of hearing Neck: supple; trachea midline Skin: warm, dry without signs of tenting; no cyanosis; no rashes, bruising, lesions, or erythema noted CV: chest wall NTP; RRR; S1/S2 normal; no murmurs/rubs/gallops; pulses intact and symmetric at radial, DP, and PT Lungs: no acute respiratory distress; symmetrical chest wall expansion; clear breath sounds across all lung [place] w/o adventitious sounds; no wheezing ABD: Soft, NTP; BS present; no rebound/guarding; no distention; urostomy without signs of erythema, drainage, or infection MSK: no tics or fasciculations; no edema noted in the LEs b/l, nonerythematous; patient demonstrates ability to wiggle toes, plantarflex/dorsiflex bilaterally Neuro: A&Ox3; normal mood and affect; fluent speech; no facial droop; no focal deficits; sensation grossly intact in the face/UE/LEs b/l; negative pronator drift Results & Data Results & Data Vital Signs (Past 12 Hours) Vital Signs Temp Pulse Pulse Resp BP BP Pulse Ox 09/06/23 14:11 75 17 178/89 H 97 09/06/23 13:00 72 13 131/97 95 09/06/23 12:47 75 09/06/23 12:27 65 17 131/97 95 09/06/23 10:27 36.6 C 69 18 146/80 H 96 O2 Del Method 09/06/23 14:11 Room Air 09/06/23 13:00 09/06/23 12:47 09/06/23 12:27 Room Air 09/06/23 10:27 Laboratory Results Abnormal lab results 09/06/23 Range/Units 12:20 Lymph # (Auto) 0.70 L (1.20-3.40) K/uL [place] # (Auto) 0.77 H (0.11-0.59) K/uL Sodium 133 L (136-145) mmol/L Potassium 3.3 L (3.5-5.1) mmol/L Chloride 96 L (98-107) mmol/L Diagnostic Findings Head CT 09/06/23 12:[address] OF THE BRAIN; CT ANGIOGRAM OF THE BRAIN; CT ANGIOGRAM OF THE NECK CLINICAL HISTORY: Neurological deficit. Stroke like symptoms. COMPARISON STUDY: No priors. TECHNIQUE: Unenhanced axial CT scan of the brain is performed. Subsequently, following the IV administration of 112 of Optiray 320, CT angiogram of the head and neck was performed from the aortic arch to the vertex. Images are reviewed in the axial, sagittal, and coronal planes. 3-D MIPS images are created and assessed. IV contrast was administered without complication. All measurements were calculated based on NASCET criteria. A dose lowering technique was utilized adhering to the principles of ALARA. CT DOSE: 1130.62 mGy.cm FINDINGS: Brain parenchyma: There is age related involutional change noting mild microa ngiopathic disease. There is no hemorrhage, mass effect, or evidence of acute territorial ischemia by CT criteria. There is no evidence of enhancing mass lesion on the angiogram phase images. The ventricles, sulci, and cisterns are prominent secondary to change. Fleming-white matter differentiation is preserved. No extra-axial fluid collection is seen. Thoracic aorta: There is atherosclerotic calcification of the thoracic aorta. Visualized portions of the thoracic aorta are normal in caliber. The aortic arch demonstrates standard 3-vessel anatomy. Right carotid arterial system: The right common carotid artery is widely patent, as are the right internal and external carotid arteries. Left carotid arterial system: The left common carotid artery is widely patent, as are the left internal and external carotid arteries. Minimal plaque is seen in the carotid bulb. Vertebral arteries: The vertebral arteries are widely patent bilaterally and codominant. Subclavian arteries: Widely patent bilaterally. Intracranial vasculature: The internal carotid arteries are patent at the skull base, as are the anterior and middle cerebral arteries bilaterally. The vertebrobasilar system and posterior cerebral arteries are widely patent. The vertebral arteries are codominant. There is no aneurysm, high-grade stenosis, or focal vessel cut off seen throughout the intracranial circulation. Jugular veins: Patent bilaterally. Dural sinuses: Patent. Lung apices: Partially visualized upper lobe lung parenchyma appears clear. Soft tissues: The visualized pharyngeal soft tissues are normal in appearance noting angiographic phase technique. The oropharyngeal airway appears widely patent. The salivary and thyroid glands are normal in appearance. No cervical lymphadenopathy is seen. Skeletal structures: The skeletal structures are osteopenic. The calvarium appears intact. The cervical spine is maintained noting multilevel spondylosis. No lytic or blastic lesion is seen. Orbits: The bony orbits are intact. Orbital contents are normal as visualized noting a left ocular lens implant. Sinuses and mastoids: Retention cyst in the right maxillary antrum measuring up to 2.4 cm. Trace mucosal thickening is noted in the frontal and ethmoid sinuses. There are trace mastoid effusions. IMPRESSION: 1. There is no hemorrhage, mass effect, or evidence of acute territorial ischemia by CT criteria. 2. Unremarkable CT angiogram of the brain. 3. Unremarkable CT angiogram of the neck. ACT 112: Negative or not required by law. Electronically signed by: Real Zazueta M.D. 09/06/2023 1:42 PM Head CTA 09/06/23 12:[address] OF THE BRAIN; CT ANGIOGRAM OF THE BRAIN; CT ANGIOGRAM OF THE NECK CLINICAL HISTORY: Neurological deficit. Stroke like symptoms. COMPARISON STUDY: No priors. TECHNIQUE: Unenhanced axial CT scan of the brain is performed. Subsequently, following the IV administration of 112 of Optiray 320, CT angiogram of the head and neck was performed from the aortic arch to the vertex. Images are reviewed in the axial, sagittal, and coronal planes. 3-D MIPS images are created and assessed. IV contrast was administered without complication. All measurements were calculated based on NASCET criteria. A dose lowering technique was utilized adhering to the principles of ALARA. CT DOSE: 1130.62 mGy.cm FINDINGS: Brain parenchyma: There is age related involutional change noting mild microangiopathic disease. There is no hemorrhage, mass effect, or evidence of acute territorial ischemia by CT criteria. There is no evidence of enhancing mass lesion on the angiogram phase images. The ventricles, sulci, and cisterns are prominent secondary to change. Fleming-white matter differentiation is preserved. No extra-axial fluid collection is seen. Thoracic aorta: There is atherosclerotic calcification of the thoracic aorta. Visualized portions of the thoracic aorta are normal in caliber. The aortic arch demonstrates standard 3-vessel anatomy. Right carotid arterial system: The right common carotid artery is widely patent, as are the right internal and external carotid arteries. Left carotid arterial system: The left common carotid artery is widely patent, as are the left internal and external carotid arteries. Minimal plaque is seen in the carotid bulb. Vertebral arteries: The vertebral arteries are widely patent bilaterally and codominant. Subclavian arteries: Widely patent bilaterally. Intracranial vasculature: The internal carotid arteries are patent at the skull base, as are the anterior and middle cerebral arteries bilaterally. The vertebrobasilar system and posterior cerebral arteries are widely patent. The vertebral arteries are codominant. There is no aneurysm, high-grade stenosis, or focal vessel cut off seen throughout the intracranial circulation. Jugular veins: Patent bilaterally. Dural sinuses: Patent. Lung apices: Partially visualized upper lobe lung parenchyma appears clear. Soft tissues: The visualized pharyngeal soft tissues are normal in appearance noting angiographic phase technique. The oropharyngeal airway appears widely patent. The salivary and thyroid glands are normal in appearance. No cervical lymphadenopathy is seen. Skeletal structures: The skeletal structures are osteopenic. The calvarium appears intact. The cervical spine is maintained noting multilevel spondylosis. No lytic or blastic lesion is seen. Orbits: The bony orbits are intact. Orbital contents are normal as visualized noting a left ocular lens implant. Sinuses and mastoids: Retention cyst in the right maxillary antrum measuring up to 2.4 cm. Trace mucosal thickening is noted in the frontal and ethmoid sinuses. There are trace mastoid effusions. IMPRESSION: 1. There is no hemorrhage, mass effect, or evidence of acute territorial ischemia by CT criteria. 2. Unremarkable CT angiogram of the brain. 3. Unremarkable CT angiogram of the neck. ACT 112: Negative or not required by law. Electronically signed by: Real Zazueta M.D. 09/06/2023 1:42 PM Neck CTA 09/06/23 12:[address] OF THE BRAIN; CT ANGIOGRAM OF THE BRAIN; CT ANGIOGRAM OF THE NECK CLINICAL HISTORY: Neurological deficit. Stroke like symptoms. COMPARISON STUDY: No priors. TECHNIQUE: Unenhanced axial CT scan of the brain is performed. Subsequently, following the IV administration of 112 of Optiray 320, CT angiogram of the head and neck was performed from the aortic arch to the vertex. Images are reviewed in the axial, sagittal, and coronal planes. 3-D MIPS images are created and assessed. IV contrast was administered without complication. All measurements were calculated based on NASCET criteria. A dose lowering technique was utilized adhering to the principles of ALARA. CT DOSE: 1130.62 mGy.cm FINDINGS: Brain parenchyma: There is age related involutional change noting mild microangiopathic disease. There is no hemorrhage, mass effect, or evidence of acute territorial ischemia by CT criteria. There is no evidence of enhancing mass lesion on the angiogram phase images. The ventricles, sulci, and cisterns are prominent secondary to change. Fleming-white matter differentiation is preserved. No extra-axial fluid collection is seen. Thoracic aorta: There is atherosclerotic calcification of the thoracic aorta. Vi sualized portions of the thoracic aorta are normal in caliber. The aortic arch demonstrates standard 3-vessel anatomy. Right carotid arterial system: The right common carotid artery is widely patent, as are the right internal and external carotid arteries. Left carotid arterial system: The left common carotid artery is widely patent, as are the left internal and external carotid arteries. Minimal plaque is seen in the carotid bulb. Vertebral arteries: The vertebral arteries are widely patent bilaterally and codominant. Subclavian arteries: Widely patent bilaterally. Intracranial vasculature: The internal carotid arteries are patent at the skull base, as are the anterior and middle cerebral arteries bilaterally. The vertebrobasilar system and posterior cerebral arteries are widely patent. The vertebral arteries are codominant. There is no aneurysm, high-grade stenosis, or focal vessel cut off seen throughout the intracranial circulation. Jugular veins: Patent bilaterally. Dural sinuses: Patent. Lung apices: Partially visualized upper lobe lung parenchyma appears clear. Soft tissues: The visualized pharyngeal soft tissues are normal in appearance noting angiographic phase technique. The oropharyngeal airway appears widely patent. The salivary and thyroid glands are normal in appearance. No cervical lymphadenopathy is seen. Skeletal structures: The skeletal structures are osteopenic. The calvarium appears intact. The cervical spine is maintained noting multilevel spondylosis. No lytic or blastic lesion is seen. Orbits: The bony orbits are intact. Orbital contents are normal as visualized noting a left ocular lens implant. Sinuses and mastoids: Retention cyst in the right maxillary antrum measuring up to 2.4 cm. Trace mucosal thickening is noted in the frontal and ethmoid sinuses. There are trace mastoid effusions. IMPRESSION: 1. There is no hemorrhage, mass effect, or evidence of acute territorial ischemia by CT criteria. 2. Unremarkable CT angiogram of the brain. 3. Unremarkable CT angiogram of the neck. ACT 112: Negative or not required by law. Electronically signed by: Real Zazueta M.D. 09/06/2023 1:42 PM ECG Additional Comments: ECG revealed undetermined rhythm at 77 bpm; QTc 427 Code Status & VTE Plan Code Status Full code Eleonora Pappas (Daughter/ POA ) - [phone] Amber (Grand-daughter/ also POA) - [phone] VTE Prophylaxis Plan VTE Prophylaxis will be ordered: Yes Supervising Physician Co-Signing Physician Notes Patient seen and examined, chart reviewed, case discussed with Sharif Ordonez PA-C and I agree with the assessment and plan as above except as otherwise noted Labs and images reviewed 83-year-old male who presents with suspected amaurosis fugax of the left eye 1 week ago with return of his vision to normal after less than 5 minutes, was a darkened curtain over the left eye only. CThead, CTA head and neck were normal. No prior strokes. No prior history of strokes. Family history of stroke in his daughter, which was also preceded by amaurosis. Previously on aspirin but discontinued this in absence of stroke/cardiac disease and risk of bleeding with age. MRI is pending to evaluate for stroke. If workup is negative given significant prominent and focal deficit would treat at least as T IA and increase statin to moderatehigh potency, resume antiplatelet therapy. He was previously on atorvastatin and this is having an allergy, patient does not recall this or having muscle aches. Will trial rosuvastatin instead. patient thinks he may have had a PFO and had an echo many years ago, repeat pending. ROPE score 3 points,low likelihood that this was related to PFO if present however this also does not account for any underlying coagulopathy. Given that this is a ischemic event with a family history of amaurosis fugax and his daughter, agree with hypercoagulable panel. He does not have any buddhist pain or cording on exam and CRP is negative, low suspicion for GCA. PG Care Time/CCT Total # of Minutes Spent Total Time Spent with Patient: Total time spent is greater than 50% in coordination of care (as documented) at patient's floor/unit and/or counseling patient: [place] [address] INT INP/OBS CARE 2/55MIN Patient Type New Medical Decision Making Moderate Complexity Diagnoses Amaurosis fugax of left eye G45.3 Stroke-like symptoms R29.90 Hypercholesterolemia E78.00 Hypokalemia E87.6 Presence of urostomy Z93.6
[2023-09-06 15:37] LABS: C Reactive Protein < 0.50 mg/dl (0-0.5)
[2023-09-06] MEDS ORDERED: PHARMACIST DISCHARGE MED REC CONSULT PRN (15:50)
--- NOTE | 2023-09-06 17:08 | Magnetic Resonance Report ---
MRI OF THE BRAIN WITHOUT IV CONTRAST CLINICAL HISTORY: Amaurosis fugax of the left eye. Neurologic deficit. Stroke like symptoms. COMPARISON STUDY: CT of the brain dated 09/06/2023. TECHNIQUE: MRI of the brain was performed utilizing various T1 and T2-weighted sequences in the axial , sagittal, and coronal planes. IV contrast was not administered for this examination. FINDINGS: Brain parenchyma: There is age-related involutional change noting minimal microangiopathic disease. T here is no hemorrhage or mass effect. There is no restricted diffusion to suggest acute ischemia. Gra y-white matter differentiation is preserved. No extra-axial fluid collection is seen. The cerebellar tonsils are normal in configuration. Ventricles, sulci, and cisterns: Prominent secondary to involutional change. Pituitary and sella: Unremarkable. Intracranial vasculature: Normal flow voids are maintained at the skull base. Orbits: The bony orbits are grossly intact. Orbital contents are normal in appearance noting a left o cular lens implant. Sinuses and mastoids: Retention cyst in the right maxillary antrum measuring up to 2.6 cm. The [place] sinuses are otherwise clear. The mastoid air cells are well pneumatized. Calvarium: Unremarkable. Cervical cord: Partially visualized cervical spinal cord is normal in morphology and signal intensity . IMPRESSION: No acute intracranial abnormality. ACT 112: Negative or not required by law. Electronically signed by: Real Zazueta M.D. 09/06/2023 5:06 PM
[2023-09-06] MEDS: ASPIRIN 81 MG ECTAB PO STA (17:30)
[2023-09-06] MEDS ORDERED: ACETAMINOPHEN 325 MG TAB PO PRN (19:35)
[2023-09-06] MEDS: POTASSIUM CHLORIDE CRTAB 20 MEQ TABCR PO STA (19:51)
[2023-09-06] MEDS: POTASSIUM CHLORIDE CRTAB 20 MEQ TABCR PO SCH (21:15)
[2023-09-06] MEDS: HYDROcodone/HOMATROPINE SYRUP 5MG/1.5MG 5ML UDP PO PRN (21:15)
[2023-09-07 06:24] LABS: Basophils # (auto) 0.04 K/uL (0.00-0.20); Basophils % (auto) 0.8 %; Eosinophils # (auto) 0.08 K/uL (0.00-0.50); Eosinophils % (auto) 1.6 %; Hematocrit (blood only) 44.5 % (42.0-52.0); Hemoglobin 15.6 g/dl (14.0-18.0); Immature Granulocytes # (auto) 0.02 K/uL (0.01-0.20); Immature Granulocytes % (auto) 0.4 %; Lymphocytes # (auto) 0.72 K/uL (1.20-3.40); Lymphocytes % (auto) 14.1 %; Mean Corpuscular Hemoglobin 31.8 pg (25.0-34.0); Mean Corpuscular Hgb Conc 35.1 g/dL (32.0-36.0); Mean Corpuscular Volume 90.8 fL (80.0-100.0); Mean Platelet Volume 9.4 fL (9.4-12.4); Monocytes # (auto) 0.74 K/uL (0.11-0.59); Monocytes % (auto) 14.5 %; Neutrophils # (auto) 3.52 K/uL (1.40-6.50); Neutrophils % (auto) 68.6 %; Platelet Count 211 K/uL (130-400); RDW Coefficient of Variation 12.9 % (11.5-14.5); RDW Standard Deviation 42.5 fL (36.4-46.3); White Blood Count 5.12 K/ul (4.8-10.8)
[2023-09-07 06:46] LABS: BUN Creatinine Ratio 18.4 (10-20); Calcium 9.1 mg/dl (8.6-10.3); Chol HDL Ratio 2.8 (0-5); Creatinine Clr Calc Pharmacy 48.9 ml/min; Est GFR (African American) 78.6 ml/min; Est GFR (Non-African American) 67.8 ml/min; Magnesium 1.9 mg/dl (1.7-2.4); Potassium 3.5 mmol/L (3.5-5.1)
[2023-09-07] MEDS: CHLORTHALIDONE 25 MG TAB PO SCH (08:22)
[2023-09-07] MEDS: amLODIPine BESYLATE 5 MG TAB PO SCH (08:23)
[2023-09-07] MEDS: ASPIRIN 81 MG ECTAB PO SCH (08:24)
[2023-09-07] MEDS: ROSUVASTATIN CALCIUM 20 MG TAB PO SCH (08:24)
--- NOTE | 2023-09-07 09:03 | Electrocardiogram Report ---
Test Reason : Blood Pressure : / mmHG Vent. Rate : 077 BPM Atrial Rate : 077 BPM P-R Int : 000 ms QRS Dur : 108 ms QT Int : 378 ms P-R-T Axes : 000 101 009 degrees QTc Int : 427 ms Sinus rhythm with Premature atrial complexes in a pattern of bigeminy Rightward axis Diffuse Minor Nonspecific ST abnormality Abnormal ECG When compared with ECG of 15-JAN-2023 11:28, Premature atrial complexes now present Minor Nonspecific ST abnormality now present Confirmed by Jun Sheets ([id number]) on 09/07/2023 9:02:56 AM Referred By: REFERRED SELF Confirmed By:Jun Sheets
--- NOTE | 2023-09-07 10:23 | XCELERA ---
[id number] \\[id number]
--- NOTE | 2023-09-07 10:50 | Discharge Summary ---
Date of Service September 07, 2023 Admission HPI Per Admitting Provider Arian is an 83-year-old male with PMH of tricuspid regurg, aortic insufficiency, hyperglycemia, HTN, Raynaud's, bladder cancer s/p urostomy bag. He presented for an episode of vision loss that occurred 1 week ago on Tuesday 08/29. Patient [place], and reports that his left eye felt like a "curtain" came "up" over it. He then subsequently lost vision in the left eye for approximately 3 minutes. No prior experiences like this one. He was sent in for TIA/stroke workup. Something similar happened to his daughter a while back, where she lost vision for 3 minutes in the left eye, and then reportedly had a TIA. The patient has never had a stroke or TIA to his knowledge. He denies slurred speech, facial droop, or unilateral deficits. Patient wears glasses at baseline; no contacts; he did have a cataract removed from his left eye 6 years ago. He still has a minor cataract in his right eye. No family history of blood clots or bleeding disorders. No PMH of DVT/PE. Patient took all of his regular morning medications; no recent change in medications. He was formally on aspirin 81 mg daily for primary prevention, but was taken off it around 2 years ago. He denies any rashes or tick bites. He denies smoking, tobacco use, or recent alcohol use. Patient is hypertensive at 178/89 at time of admission; vitals otherwise stable. ED course: Alcaine 0.5% 2 drops ROS: Patient endorses one episode of transient monocular (left) vision loss, dizziness when lying down the other night, frontotemporal pressure, dry cough, occassional loose stool, and ongoing neuropathy in the legs/feet. Patient denies fever, chills, night-sweats, pain in ears, changes in hearing/taste/smell, slurred speech, facial droop, headache, new weakness/pressure in the shoulders/hips (patient does endorse chronic), unilateral deficits, chest pain, chest palpitations, SOB, pleuritic CP, hemopytsis, abdominal pain, N/V/D, and change in urinary/bowel habits. Principal Diagnosis Amaurosis fugax Discharge Exam The patient is awake, alert and oriented 3, well developed and well nourished, normocephalic and atraumatic, lying in bed and in no acute distress. HEENT--PERRL, EOMI, mucous membranes and oropharynx mildly dry Neck--supple. No JVD. No bruits. Thyroid normal, trachea midline, no adenopathy . Heart--normal S1 and S2. No murmurs, rubs or gallops. Lungs--clear bilaterally, no respiratory distress, no accessory muscle use. Abdomen--normal bowel sounds and soft. Extremities--no cyanosis or clubbing. No edema. Dermatologic--normal skin turgor, normal color, no abnormal lymph nodes, no rash. Neurologic--cranial nerves II through XII grossly intact. Rheumatologic--normal range of motion. Psychiatric--normal affect. Discharge Data Allergies Allergy/AdvReac Type Severity Reaction Status Date / Time atorvastatin AdvReac Unknown Unknown Verified 01/29/23 07:19 lovastatin [From Mevacor] AdvReac Unknown Unknown Verified 01/29/23 07:19 sildenafil [From Viagra] AdvReac Unknown "I didnt Verified 01/29/23 07:19 like it so I stopped it" Consultations 09/06/23 15:09 ED Decision to Admit Stat Ordered Studies 09/06/23 12:36 CT angio head w con Stat CT angio neck with con Stat CT head/brain wo con Stat 09/06/23 15:50 MR brain wo con Urgent Hospital Course (1) Amaurosis fugax of left eye: Transient monocular vision loss that occurred on Tuesday 08/29; one week prior to coming to the ED Patient reports a "curtain" bj up over his eye and he lost vision for approximately 3 minutes Did not seek medical treatment at that time Sent in for stroke/TIA rule out Head CT, head CTA, and neck CTA without acute findings Brain MRI without contrast Within normal limits Echocardiogram with bubble study Also within normal limits Hypercoagulable panel ordered; hypercoagulable panel indicated for suspected ischemic cause of vision with family hx (daughter) having similar episode of vision loss/TIA ESR mildly elevated at 29 CRP WNL Patient was previously on aspirin 81 mg daily for primary prevention, but was taken off it 2 years ago (he is unsure why) Restart aspirin 81 mg daily Discharge home follow-up with PCP (2) Stroke-like symptoms: Imaging/labs/treatment (as outlined above) (3) Hypercholesterolemia: Patient is currently on pravastatin 40 mg daily Listed allergies for atorvastatin/rosuvastatin, but unclear reaction Follow a.m. fasting lipid panel (4) Hypokalemia: Mild; K 3.3 on arrival Potassium chloride 20mEq p.o. given Recheck a.m. BMP (5) Presence of urostomy: Daily ostomy care Plan Disposition: Discharge home Full code Heart healthy diet VTE PPx: SCDs, ASA Total Time Total Time Spent Total Time Spent (In Minutes): 35 Discharge Plan Discharge Items Patient Disposition: Home - Self-Care Reason For Visit: TRANSIENT MONOCULAR VISON LOSS IN LEFT EYE Discharge Diagnosis: Amaurosis fugax Activity: Resume your previous activity Non-emergency contact: Primary Care Provider Call non-emergency contact if: you have any medication questions Follow-up/Referrals: Marta Mcnair MD [Primary Care Provider] - Diet: Regular Addtl Attending Provider Instructions: Please make appointment to follow-up with her regular PCP. We will start you on aspirin Pending Studies at Discharge: Yes Studies:: Hypercoagulation workup Stand-Alone Forms: [facility] [employer], Smoking Cessation Medications and DC Order Prescriptions: New aspirin 81 mg Tablet,Delayed Release (Dr/Ec) 81 mg PO QAM Qty: 30 0RF Continued hydrocodone-homatropine [Hydromet] 5-1.5 mg/5 mL syrup 5 ml PO Q6H PRN (Reason: cough) Qty: 240 0RF Rx Instructions: per pt he uses this when he can get it (DME) ostomy supplies [Adapt Stoma Powder] Powder See Rx Instructions .Route Qty: 28.3 5RF Rx Instructions: apply to area of red skin around stoma chlorthalidone 25 mg tablet 25 mg PO QAM Glucosamine-Chondr (MSM-hyal) 500-66.7-500-2 mg tablet 1 tab PO QAM pravastatin 40 mg tablet 40 mg PO QPM coenzyme Q10 [Co Q-10] 10 mg capsule 10 mg PO QAM potassium chloride 20 mEq tablet extended release 20 meq PO TID Patient Comments: takes 2 tablets in the am and 1 in the pm amlodipine [Norvasc] 5 mg tablet 5 mg PO QAM timolol maleate 0.5 % drops 1 drp ophthalmic (eye) DAILY Discharge Orders: Discharge Order (Routine); Ordered 09/07/23 Ordered By: Sameer Gutierrez Admission Data Admit Date/Time: 09/06/23 15:58 Attending Provider: Sameer Gutierrez Admit Provider: Aguila Hale Primary Care Provider: Marta Mcnair Other Providers: Aguila Hale Coding Level of Care Code 34096 INP/OBS DISCH >30 MIN Diagnoses Amaurosis fugax of left eye G45.3 Stroke-like symptoms R29.90 Hypercholesterolemia E78.00 Hypokalemia E87.6 Presence of urostomy Z93.6 Time Spent (min) 35
[2023-09-08 07:11] LABS: Estimated Average Glucose 114 mg/dl; Hemoglobin A1C 5.6 % (4.5-5.6)
== END 2023-09-07 12:52 | disposition home or self-care (01) ==
LOC: ED 10:26 → 4W 10:26 → SUATTDRO 15:58 → 4W 18:33